=== PATIENT | female | born 1980 | race Caucasian/White ===

== ENCOUNTER 2018-09-22 03:22 | Emergency (ER) | payer BC ==
[~2018-09-22] VITALS: Ht 172.7 cm; Wt 90.0 kg
[2018-09-22] MEDS ORDERED: KETOROLAC 30 MG/ML VIAL (J1885) As Ordered ONE (03:30)
[2018-09-22] MEDS ORDERED: ONDANSETRON 4MG/2ML VIAL (J2405) As Ordered ONE (03:31)
[2018-09-22] MEDS ORDERED: KETOROLAC 30 MG/ML VIAL (J1885) IV ONE (04:00)
[2018-09-22] MEDS ORDERED: NS 1,000 ML IV ONE ×2 (04:00→05:45)
[2018-09-22 04:04] LABS: BASO # 0.1 10^3/uL (0.0-0.2); BASO % 0.5 % (0.0-1.0); EOS # 0.6 10^3/uL (0.0-0.50); EOS % 2.7 % (0.0-3.0); HEMATOCRIT 37.9 % (36.0-47.0); LYMPH # 3.6 10^3/uL (1.5-4.5); MEAN CORPUSCULAR HEMOGLOBIN 29.5 pg (27.0-33.0); MEAN CORPUSCULAR HGB CONC 34.3 g/dl (32.0-36.5); MEAN CORPUSCULAR VOLUME 86.1 fl (80.0-96.0); MONO # 1.3 10^3/uL (0.0-0.8); MONO % 6.2 % (0.0-5.0); NEUTROPHILS # 15.4 10^3/uL (1.8-7.7); PLATELET COUNT, AUTOMATED 345 10^3/uL (150-450); WHITE BLOOD COUNT 21.1 10^3/uL (4.0-10.0)
[2018-09-22 04:21] LABS: ALT/SGPT 25 U/L (12-78); BILIRUBIN,DIRECT < 0.1 MG/DL (0.0-0.2); BILIRUBIN,TOTAL 0.3 MG/DL (0.2-1.0); BLOOD UREA NITROGEN 18 MG/DL (7-18); CALCIUM LEVEL 8.9 MG/DL (8.5-10.1); CARBON DIOXIDE LEVEL 23 MEQ/L (21-32); CHLORIDE LEVEL 107 MEQ/L (98-107); GLOMERULAR FILTRATION RATE > 60.0 (>60); GLUCOSE, FASTING 125 MG/DL (70-100); LIPASE 135 U/L (73-393); POTASSIUM SERUM 3.5 MEQ/L (3.5-5.1); SODIUM LEVEL 141 MEQ/L (136-145); TOTAL PROTEIN 7.2 GM/DL (6.4-8.2)
[2018-09-22 04:49] LABS: HCG, SERUM QUALITATIVE NEGATIVE (NEGATIVE)
[2018-09-22] MEDS ORDERED: MORPHINE 4 MG/ML 1ML VIAL/SYRINGE (J2270) IV ONE (05:30)
--- NOTE | 2018-09-22 05:38 | REPVR ---
EXAM: CT Abdomen and Pelvis Without Contrast EXAM DATE/TIME: 09/22/2018 4:27 AM CLINICAL HISTORY: 38 years old, female; Abdominal pain; Localized; Left; Additional info: L colic TECHNIQUE: Imaging protocol: Axial computed tomography images of the abdomen and pelvis without contrast. Coronal and sagittal reformatted images were created and reviewed. Radiation optimization: All CT scans at this facility use at least one of these dose optimization techniques: automated exposure control; mA and/or kV adjustment per patient size (includes targeted exams where dose is matched to clinical indication); or iterative reconstruction. COMPARISON: No relevant prior studies available. FINDINGS: Lungs: The visualized portions of the lung bases are normal. Liver: There are no focal liver lesions present. Gallbladder and bile ducts: The gallbladder is normal with no stones or biliary ductal dilation. Pancreas: The pancreas is normal with no ductal dilation. Spleen: The spleen is normal. Adrenals: The adrenal glands are normal. Kidneys and ureters: There is a duplicated left renal collecting system. There is mild dilation of the lower pole renal pelvis and calyces, and the left ureter. The upper pole collecting system is not dilated. There is an obstructing 4 mm stone in the distal left ureter, just proximal to the bladder. There is mild perinephric stranding around the lower pole of the left kidney. There is a 2 mm stone in the right kidney upper pole.The right ureter appears normal with no stones or hydronephrosis. Stomach and bowel: There is no dilation or thickening of the colon. The small bowel appears unremarkable. Appendix: A normal appendix is identified. Intraperitoneal space: There is no evidence of free intraperitoneal or pelvic fluid. There is no free intraperitoneal air. Vasculature: The aorta is normal. No aneurysm. Lymph nodes: No lymphadenopathy is seen. Bladder: The bladder is mostly collapsed. No bladder stones are identified. Reproductive: The uterus is unremarkable. Bones/joints: No suspicious osseous lesions. No acute fractures or dislocations. Soft tissues: Unremarkable. IMPRESSION: Duplicated collecting system at the left kidney. Left kidney lower pole mild hydronephrosis with an obstructing 4 mm stone in the distal left ureter. Electronically signed by: Bere Kaur On 09/22/2018 05:38:05 AM
[2018-09-22] MEDS ORDERED: TAMSULOSIN 0.4 MG CAP PO ONE (05:45)
[2018-09-22] MEDS ORDERED: ZOFR8TAB24 PO (06:29)
[2018-09-22 06:35] VITALS: BP 122/85
== END 2018-09-22 06:46 | disposition home or self-care (01) ==
LOC: M ED 03:22
DX: N21.1 Calculus in urethra (principal)
CPT/HCPCS: 74176; 80048; 80076; 81001; 83690; 84702; 84703; 85025; 96361; 96374; 96375; 99284; J1885; J2270

== ENCOUNTER → 2018-09-24 | Outpatient (REF) | payer BC ==
[~2018-09-24] MED LIST: ZOFR8TAB24 PO
== END ==
LOC: M SMT 17:14
PROVIDERS: ATTEND Nurse Practitioner Women's Health
DX: N13.2 Hydronephrosis with renal and ureteral calculous obstruction (principal)

== ENCOUNTER → 2018-10-02 | Outpatient (REF) | payer BC ==
[2018-10-02 18:58] LABS: APPEARANCE, URINE CLEAR (CLEAR); BACTERIA, URINE AUTO NEGATIVE (NEGATIVE); BILIRUBIN, URINE AUTO NEGATIVE (NEGATIVE); BLOOD, URINE BLOOD NEGATIVE (NEGATIVE); COLOR, URINE STRAW (YELLOW); GLUCOSE, URINE (UA) AUTO NEGATIVE (NEGATIVE); KETONE, URINE AUTO NEGATIVE (NEGATIVE); LEUKOCYTE ESTERASE, URINE AUTO NEGATIVE (NEGATIVE); MUCUS, URINE SMALL (NEGATIVE); NITRITE, URINE AUTO NEGATIVE (NEGATIVE); PROTEIN, URINE AUTO NEGATIVE (NEGATIVE); RBC, URINE AUTO 0 /HPF (0-3); SPECIFIC GRAVITY URINE AUTO 1.004 (1.002-1.035); SQUAMOUS EPITHELIAL CELL UR AU 0 /HPF (0-6); UROBILINOGEN, URINE AUTO 0.2 mg/dL (0.0-2.0); WBC, URINE AUTO 0 /HPF (0-3)
== END ==
LOC: M SMT 17:24
PROVIDERS: ATTEND Nurse Practitioner Women's Health
DX: N20.1 Calculus of ureter (principal)

== ENCOUNTER → 2019-01-16 | Outpatient (CLI) | payer BC ==
--- NOTE | 2019-01-16 09:09 | REP ---
Clinical: Flank pain. Comparison: 09/22/2018. Technique: Axial noncontrast images from the lung bases to the pubic symphysis with coronal and sagittal re-formations. Findings: Moderate acute right-sided obstructive uropathy with edematous enlargement to the right kidney, perinephric and periureteral stranding as well as hydroureteronephrosis with a 2 mm calculus in the distal right ureter less than 1 cm from the ureterovesical junction. No further urinary tract calcifications are identified. The left kidney/ureter and bladder are otherwise normal. Liver, spleen, pancreas, gallbladder, and bilateral adrenal glands are normal. The enteric system is without obstruction or acute inflammatory process. Normal terminal ileum and appendix are identified in the right lower quadrant. Pelvis demonstrates normal bladder and age-appropriate uterus/adnexa. No ascites. No free air. No adenopathy. Abdominal aorta without aneurysm. Musculoskeletal structures are intact. Impression: 1. Moderate acute right-sided uropathy with a 2 mm obstructing calculus in the distal right ureter less than 1 cm from the ureterovesical junction. 2. No further urinary tract calcifications or pathology appreciated. Electronically Signed by Cali Jones MD 01/16/2019 09:00 A
== END ==
LOC: M RAD 07:33
PROVIDERS: ATTEND Nurse Practitioner Women's Health
DX: R10.9 Unspecified abdominal pain (principal); Z87.442 Personal history of urinary calculi; N13.1 Hydronephrosis with ureteral stricture, not elsewhere classified

== ENCOUNTER → 2019-10-17 | Outpatient (CLI) | payer BC ==
--- NOTE | 2019-11-09 17:09 | REP ---
LUMBOSACRAL SPINE SERIES CLINICAL: Back pain. TECHNIQUE: AP, lateral, bilateral oblique, and coned down views of the lumbosacral spine. FINDINGS: Alignment and lordosis maintained. Vertebral bodies are intact. No acute fracture/compression injury or subluxation. Oblique views are normal and without spondylolysis or spondylolisthesis. Coned down view suggests minimal endplate sclerosis and disc space narrowing at L5-S1. No further degenerative changes are appreciated. IMPRESSION: Minimal disc space narrowing at L5-S1. Otherwise, normal lumbosacral spine radiograph series. MTDD
--- NOTE | 2019-11-09 17:09 | REP ---
SACRUM AND COCCYX STUDY CLINICAL: Back pain. TECHNIQUE: AP, oblique, and lateral views of the sacrum and coccyx (four total views). FINDINGS: The sacrum and coccyx are intact and without fracture or subluxation. The bilateral sacroiliac are symmetric and normal. The surrounding soft tissues are unremarkable. IMPRESSION: Normal sacrum and coccyx radiographs. MTDD
== END ==
LOC: M WUC 10:59
PROVIDERS: ATTEND Nurse Practitioner Family
DX: M54.5 Low back pain (principal)

== ENCOUNTER → 2020-01-19 | Outpatient (CLI) | payer SELFPAY | LOC: M LABSMTC 17:37 | PROVIDERS: ATTEND Pediatrics | DX: Z11.59 Encounter for screening for other viral diseases (principal) ==

== ENCOUNTER → 2020-12-29 | Outpatient (CLI) | payer BC ==
[~2020-12-29] MED LIST changes: +CLAR10CA3 PO; +DULO1CAP4 PO; +MELO15TA28 PO
== END ==
LOC: M LABSMTC 09:22
PROVIDERS: ATTEND Anesthesiology
DX: Z01.812 Encounter for preprocedural laboratory examination (principal); Z20.822 Contact with and (suspected) exposure to COVID-19

== ENCOUNTER 2021-01-03 09:48 | Day surgery (SDC) | payer BC ==
[~2021-01-03] VITALS: Ht 175.3 cm; Wt 98.4 kg
[~2021-01-03 09:48] MED LIST changes: +NS 1,000 ML IV ONE
[2021-01-03] MEDS ORDERED: LIDOCAINE 2% 100MG/5ML SDV (FOR ANES.) As Ordered ONE (11:13)
[2021-01-03] MEDS ORDERED: propofoL 200 MG/20 ML VIAL As Ordered ONE (11:13)
--- NOTE | 2021-01-03 11:36 | ROOR ---
Patient Name: Vidya Zavala Procedure Date: 01/03/2021 11:16 AM Date of : 1980 Age: 40 Room: [facility] Gender: Female Note Status: Finalized Procedure: Colonoscopy Indications: Rectal bleeding, Suspected irritable bowel syndrome Providers: Jhonny Araya Jr, MD Referring MD: Emir Carey MD Requesting Provider: Medicines: Propofol per Anesthesia Complications: No immediate complications. Procedure: Pre-Anesthesia Assessment: - Prior to the procedure, a History and Physical was performed, and patient medications and allergies were reviewed. The patient is competent. The risks and benefits of the procedure and the sedation options and risks were discussed with the patient. All questions were answered and informed consent was obtained. Patient identification and proposed procedure were verified by the physician and the nurse in the pre-procedure area and in the procedure room. Mental Status Examination: alert and oriented. Airway Examination: normal oropharyngeal airway and neck mobility. Respiratory Examination: clear to auscultation. CV Examination: normal. ASA Grade Assessment: II - A patient with mild systemic disease. After reviewing the risks and benefits, the patient was deemed in satisfactory condition to undergo the procedure. The anesthesia plan was to use moderate sedation / analgesia (conscious sedation). Immediately prior to administration of medications, the patient was re-assessed for adequacy to receive sedatives. The heart rate, respiratory rate, oxygen saturations, blood pressure, adequacy of pulmonary ventilation, and response to care were monitored throughout the procedure. The physical status of the patient was re-assessed after the procedure. The Colonoscope was introduced through the anus and advanced to the cecum, identified by appendiceal orifice and ileocecal valve. The colonoscopy was performed without difficulty. The patient tolerated the procedure well. The quality of the bowel preparation was adequate. Findings: The rectum, recto-sigmoid colon, sigmoid colon, descending colon, transverse colon, ascending colon, cecum, appendiceal orifice and ileocecal valve appeared normal. Biopsies for histology were taken with a cold forceps from the cecum, ascending colon, transverse colon, descending colon and sigmoid colon for evaluation of microscopic colitis. A small anal fissure was found in the anal canal. Impression: - The rectum, recto-sigmoid colon, sigmoid colon, descending colon, transverse colon, ascending colon, cecum, appendiceal orifice and ileocecal valve are normal. Biopsied. - Anal fissure. Recommendation: - Discharge patient to home (ambulatory). - Return to my office as previously scheduled. Procedure Code(s): --- Professional --- 75626, Colonoscopy, flexible; with biopsy, single or multiple Diagnosis Code(s): --- Professional --- K60.2, Anal fissure, unspecified K62.5, Hemorrhage of anus and rectum CPT copyright 2019 [employer]. All rights reserved. The codes documented in this report are preliminary and upon vp product review may be revised to meet current compliance requirements. Jhonny Araya MD Jhonny Araya Jr, MD 01/03/2021 11:36:12 AM Electronically signed by Jhonny Araya Jr, MD Number of Addenda: 0 Note Initiated On: 01/03/2021 11:16 AM Estimated Blood Loss: Estimated blood loss: none.
[2021-01-03 11:58] VITALS: BP 128/68
== END 2021-01-03 12:01 | disposition home or self-care (01) ==
LOC: M OPP 09:48
PROVIDERS: ATTEND Surgery
DX: K60.2 Anal fissure, unspecified (principal); K62.5 Hemorrhage of anus and rectum; F17.200 Nicotine dependence, unspecified, uncomplicated

== ENCOUNTER → 2021-03-17 | Outpatient (CLI) | payer BC ==
[~2021-03-17] MED LIST changes: -NS 1,000 ML IV ONE
== END ==
LOC: M SLEEP HO 13:06
PROVIDERS: ATTEND Physician Assistant
DX: R06.83 Snoring (principal); R40.0 Somnolence; G47.9 Sleep disorder, unspecified

== ENCOUNTER → 2021-07-31 | Outpatient (CLI) | payer BC ==
[2021-07-31 16:41] LABS: BLOOD UREA NITROGEN 12 MG/DL (7-18); CREATININE FOR GFR 0.65 MG/DL (0.55-1.30); GLOMERULAR FILTRATION RATE > 60.0 (>60)
== END ==
LOC: M PLALAB 12:55
PROVIDERS: ATTEND Physical Medicine & Rehabilitation
DX: M51.37 Other intervertebral disc degeneration, lumbosacral region (principal); M48.07 Spinal stenosis, lumbosacral region

== ENCOUNTER → 2022-05-31 | Outpatient (REF) | payer BC ==
[2022-05-31 18:09] LABS: BASO # 0.1 10^3/uL (0.0-0.2); BASO % 0.7 % (0.0-1.0); EOS # 0.4 10^3/uL (0.0-0.5); EOS % 2.5 % (0.0-3.0); HEMATOCRIT 44.7 % (36.0-47.0); HEMOGLOBIN 14.8 g/dl (12.0-15.5); LYMPH % 20.6 % (24.0-44.0); MEAN CORPUSCULAR HEMOGLOBIN 29.1 pg (27.0-33.0); MEAN CORPUSCULAR HGB CONC 33.1 g/dl (32.0-36.5); MONO # 1.1 10^3/uL (0.0-0.8); MONO % 7.7 % (2.0-8.0); NEUTROPHILS # 9.9 10^3/uL (1.5-8.5); NEUTROPHILS % 68.2 % (36.0-66.0); PLATELET COUNT, AUTOMATED 435 10^3/uL (150-450); RED BLOOD COUNT 5.08 10^6/uL (4.00-5.40); WHITE BLOOD COUNT 14.5 10^3/uL (4.0-10.0)
== END ==
LOC: M LAB REF 17:21
PROVIDERS: ATTEND Family Medicine
DX: D72.829 Elevated white blood cell count, unspecified (principal)

== ENCOUNTER → 2022-06-13 | Outpatient (REF) | payer OTHER ==
[2022-06-13 17:32] LABS: RHEUMATOID FACTOR QUANT < 3.5 IU/ML (<14)
[2022-06-15 14:09] LABS: ANTINUCLEAR ANTIBODIES DIRECT Negative (Negative)
== END ==
LOC: M LAB REF 16:17
PROVIDERS: ATTEND Family Medicine
DX: M54.50 Low back pain, unspecified (principal)

== ENCOUNTER → 2022-07-14 | Outpatient (CLI) | payer OTHER | LOC: M RAD 08:39 | PROVIDERS: ATTEND Physician Assistant | DX: M51.37 Other intervertebral disc degeneration, lumbosacral region (principal); M48.07 Spinal stenosis, lumbosacral region; M51.26 Other intervertebral disc displacement, lumbar region ==

== ENCOUNTER → 2023-05-16 | Outpatient (REF) | payer OTHER | LOC: M LAB REF 11:29 | PROVIDERS: ATTEND Student in an Organized Health Care Education/Training Program | DX: J06.9 Acute upper respiratory infection, unspecified (principal) ==

== ENCOUNTER → 2023-10-26 | Outpatient (CLI) | payer OTHER | LOC: M RAD 14:16 | PROVIDERS: ATTEND Physician Assistant | DX: M51.17 Intervertebral disc disorders with radiculopathy, lumbosacral region (principal); M47.816 Spondylosis without myelopathy or radiculopathy, lumbar region; M47.817 Spondylosis without myelopathy or radiculopathy, lumbosacral region; M48.061 Spinal stenosis, lumbar region without neurogenic claudication ==